=== PATIENT | male | born 1990 | race African-American/Black ===

== ENCOUNTER 2023-09-11 16:17 | Inpatient (IN) | payer OTHER ==
[2023-09-11 18:48] VITALS: BMI 24.6
[2023-09-11] MEDS ORDERED: guaiFENesin 600 MG TABLET.ER (FP) PO PRN (20:13)
[2023-09-11] MEDS ORDERED: MAG HYDROX/AL HYDROX/SIMETH 30 ML UNIT-DOSE CUP PO PRN (20:13)
[2023-09-11] MEDS ORDERED: BISMUTH SUBSALICYLATE 524 MG/30 ML PO PRN (20:13)
[2023-09-11] MEDS ORDERED: IBUPROFEN 600 MG TABLET (FP) PO PRN (20:13)
[2023-09-11] MEDS ORDERED: NALOXONE HCL (KLOXXADO) 8 MG SPRAY NS PRN (20:13)
[2023-09-11] MEDS ORDERED: ACETAMINOPHEN 325 MG TABLET (FP) PO PRN (20:13)
[2023-09-11] MEDS ORDERED: BENZONATATE 200 MG CAPSULE PO PRN (20:13)
[2023-09-11] MEDS ORDERED: LOPERAMIDE HCL 2 MG CAPSULE PO PRN (20:13)
[2023-09-11] MEDS ORDERED: ONDANSETRON *ODT* 4 MG TABLET SL PRN (20:13)
[2023-09-11] MEDS ORDERED: chlordiazePOXIDE HCL 25 MG CAPSULE PO PRN (20:13)
[2023-09-11] MEDS ORDERED: IBUPROFEN 400 MG TABLET (FP) PO PRN (20:13)
[2023-09-11] MEDS ORDERED: DICYCLOMINE HCL 10 MG CAPSULE PO PRN (20:13)
[2023-09-11] MEDS ORDERED: BENZOCAINE/MENTHOL (CHLORASEPTIC ) LOZENGE MM PRN (20:13)
[2023-09-11] MEDS ORDERED: NALOXONE HCL 0.4 MG/ML VIAL IM PRN (20:13)
[2023-09-11] MEDS ORDERED: POLYETHYLENE GLYCOL (HEALTHYLAX) 3350 17 GM PACKET PO PRN (20:13)
[2023-09-11] MEDS: chlordiazePOXIDE HCL 25 MG CAPSULE PO ONE (21:00)
[2023-09-11] MEDS: METOPROLOL TARTRATE 25 MG TABLET (FP) PO ONE (22:12)
[2023-09-11] MEDS: chlordiazePOXIDE HCL 25 MG CAPSULE PO SCH (22:12)
[2023-09-11] MEDS: METHOCARBAMOL 500 MG TABLET PO PRN (22:12)
[2023-09-11] MEDS: THIAMINE HCL 100 MG TABLET (FP) PO SCH (22:12)
[2023-09-11] MEDS: MELATONIN 5 MG TABLETS PO SCH (22:12)
[2023-09-12] MEDS: PRENATAL VITAMINS W/ FOLIC ACID TABLET (FP) PO SCH (10:10)
[2023-09-12 11:02] LABS: HEMATOCRIT 38.5 % (35.4-49); HEMOGLOBIN 12.2 GM/dL (11.7-16.9); MCH 27.2 pg (25.7-33.7); MCHC 31.8 g/dl (32.0-35.9); MEAN CELL VOLUME 85.6 fl (80-96); MEAN PLT VOLUME 8.2 fl (7.5-11.1); PLATELET COUNT 256 10^3/uL (134-434); RDW 15.2 % (11.9-15.9); WHITE BLOOD COUNT 4.6 K/mm3 (4.0-10.0)
[2023-09-12 11:39] LABS: CHLORIDE 100 mmol/L (98-107); POTASSIUM 3.4 mmol/L (3.5-5.1); SODIUM 136 mmol/L (136-145)
[2023-09-12 11:41] LABS: CALCIUM 9.5 mg/dL (8.5-10.1)
[2023-09-12 11:43] LABS: ALBUMIN 3.9 g/dl (3.4-5.0); ANION GAP 6 mmol/L (4-13); BLOOD UREA NITROGEN 10.6 mg/dL (7-18); CO2 30 mmol/L (21-32); GLUCOSE,RANDOM 89 mg/dL (74-106)
[2023-09-12 11:46] LABS: BILIRUBIN,TOTAL 1.4 mg/dL (0.2-1); CREATININE 0.9 mg/dL (0.55-1.3); SGOT/AST 55 U/L (15-37); SGPT/ALT 45 U/L (13-61); TOT PROT 7.4 g/dl (6.4-8.2)
[2023-09-12 11:48] LABS: ALK PHOS 79 U/L (45-117)
[2023-09-12 15:08] LABS: EPI CELLS 9 /uL (0-25.1); HYALINE CASTS 3 /uL (0-3.1); PH,URINE 6.5 (5.0-8.0); URINE APPEARANCE CLEAR; URINE BACTERIA 8 /uL (0-1359); URINE BILIRUBIN 1+ (NEGATIVE); URINE COLOR DK YELLOW; URINE GLUCOSE (UA) NEGATIVE (NEGATIVE); URINE KETONE TRACE (NEGATIVE); URINE LEUK ESTERASE NEGATIVE (NEGATIVE); URINE NITRITE NEGATIVE (NEGATIVE); URINE PROTEIN 1+ (NEGATIVE); URINE RBC 8 /uL (0-23.9); URINE WBC 8 /uL (0-25.8)
[2023-09-12] MEDS: POTASSIUM CHLORIDE ORAL LIQUID 20 MEQ/15 ML PO ONE (15:53)
[2023-09-12] MEDS: MAGNESIUM HYDROX 2400MG/30ML ORAL SUSPENSION 30 ML CUP PO PRN (19:04)
[2023-09-12] MEDS: LIDOCAINE PATCH REMOVAL MC SCH (22:09)
[2023-09-13] MEDS: chlordiazePOXIDE HCL 25 MG CAPSULE PO SCH (05:17)
[2023-09-13] MEDS: LIDOCAINE 4% PATCH TP SCH (10:02)
[2023-09-14] MEDS ORDERED: chlordiazePOXIDE HCL 10 MG CAPSULE PO PRN
[2023-09-14] MEDS: chlordiazePOXIDE HCL 10 MG CAPSULE PO SCH (05:32)
[2023-09-15] MEDS: chlordiazePOXIDE HCL 10 MG CAPSULE PO SCH (05:55)
[2023-09-16] MEDS: chlordiazePOXIDE HCL 10 MG CAPSULE PO ONE (05:41)
[2023-09-16 08:45] VITALS: BP 110/69; PULSE 69; RESP 16; TEMP 97.7
== END 2023-09-16 12:24 | disposition other institution (70) | DRG 775 ==
LOC: YASAS 16:17 → Y3N 21:22
PROVIDERS: ADMIT Allergy & Immunology; ATTEND Surgery
PROC: HZ2ZZZZ Detoxification Services for Substance Abuse Treatment (ICD-10-PCS; principal; 2023-09-11)
DX: F10.230 Alcohol dependence with withdrawal, uncomplicated (principal); F19.24 Other psychoactive substance dependence with psychoactive substance-induced mood disorder; F41.9 Anxiety disorder, unspecified; E87.5 Hyperkalemia; G47.00 Insomnia, unspecified; M54.50 Low back pain, unspecified; G89.29 Other chronic pain
CPT/HCPCS: 36415; 80053; 80307; 81003; 85027; 86780; 87635; 93005; 93010

== ENCOUNTER 2023-09-16 12:30 | Inpatient (IN) | payer OTHER ==
[2023-09-16] MEDS ORDERED: guaiFENesin 600 MG TABLET.ER (FP) PO PRN (14:13)
[2023-09-16] MEDS ORDERED: ACETAMINOPHEN 325 MG TABLET (FP) PO PRN (14:13)
[2023-09-16] MEDS ORDERED: DOCUSATE SODIUM 100 MG CAPSULE (FP) PO PRN (14:13)
[2023-09-16] MEDS ORDERED: AMMONIUM LACTATE 12% LOTION 225 GM BOTTLE TP PRN (14:13)
[2023-09-16] MEDS ORDERED: NALOXONE HCL (KLOXXADO) 8 MG SPRAY NS PRN (14:13)
[2023-09-16] MEDS ORDERED: COLLOIDAL OATMEAL 1 BAR EACH TP PRN (14:13)
[2023-09-16] MEDS ORDERED: MAGNESIUM HYDROX 2400MG/30ML ORAL SUSPENSION 30 ML CUP PO PRN (14:13)
[2023-09-16] MEDS ORDERED: NALOXONE HCL 0.4 MG/ML VIAL IVPUSH PRN (14:13)
[2023-09-16] MEDS ORDERED: BENZONATATE 200 MG CAPSULE PO PRN (14:13)
[2023-09-16] MEDS ORDERED: LOPERAMIDE HCL 2 MG CAPSULE PO PRN (14:13)
[2023-09-16] MEDS ORDERED: POLYETHYLENE GLYCOL (HEALTHYLAX) 3350 17 GM PACKET PO PRN (14:13)
[2023-09-16] MEDS ORDERED: IBUPROFEN 400 MG TABLET (FP) PO PRN (14:13)
[2023-09-16] MEDS ORDERED: MAG HYDROX/AL HYDROX/SIMETH 30 ML UNIT-DOSE CUP PO PRN (14:13)
[2023-09-16] MEDS ORDERED: BENZOCAINE/MENTHOL (CHLORASEPTIC ) LOZENGE MM PRN (14:13)
[2023-09-16] MEDS: MELATONIN 5 MG TABLETS PO SCH (21:15)
[2023-09-16] MEDS: hydrOXYzine PAMOATE 25 MG CAPSULE (FP) PO PRN (21:15)
[2023-09-16] MEDS: THIAMINE HCL 100 MG TABLET (FP) PO SCH (21:15)
[2023-09-16] MEDS: METHOCARBAMOL 500 MG TABLET PO PRN (21:27)
[2023-09-17] MEDS: PRENATAL VITAMINS W/ FOLIC ACID TABLET (FP) PO SCH (09:55)
[2023-09-17] MEDS: hydrOXYzine PAMOATE 25 MG CAPSULE (FP) PO PRN ×2 (09:56→21:38)
[2023-09-17] MEDS: METHOCARBAMOL 500 MG TABLET PO PRN ×2 (09:58→21:38)
[2023-09-17 12:39] LABS: HIV INTERPRETATION NEGATIVE (NEGATIVE)
[2023-09-17] MEDS: LIDOCAINE 5% TOPICAL PATCH TP SCH (12:42)
[2023-09-17] MEDS: LIDOCAINE PATCH REMOVAL MC SCH (21:38)
[2023-09-17] MEDS: MELATONIN 5 MG TABLETS PO SCH (21:38)
[2023-09-17] MEDS: THIAMINE HCL 100 MG TABLET (FP) PO SCH (21:38)
[2023-09-18] MEDS: PRENATAL VITAMINS W/ FOLIC ACID TABLET (FP) PO SCH (09:54)
[2023-09-18] MEDS: LIDOCAINE 5% TOPICAL PATCH TP SCH (09:54)
[2023-09-18] MEDS: MELATONIN 5 MG TABLETS PO SCH (21:23)
[2023-09-18] MEDS: THIAMINE HCL 100 MG TABLET (FP) PO SCH (21:23)
[2023-09-18] MEDS: METHOCARBAMOL 500 MG TABLET PO PRN (21:24)
[2023-09-18] MEDS: LIDOCAINE PATCH REMOVAL MC SCH (21:24)
[2023-09-19] MEDS: IBUPROFEN 600 MG TABLET (FP) PO PRN (06:28)
[2023-09-19] MEDS: METHOCARBAMOL 500 MG TABLET PO PRN ×2 (06:28→21:16)
[2023-09-19] MEDS: hydrOXYzine PAMOATE 25 MG CAPSULE (FP) PO PRN ×2 (06:30→21:16)
[2023-09-19] MEDS: PRENATAL VITAMINS W/ FOLIC ACID TABLET (FP) PO SCH (09:55)
[2023-09-19] MEDS: LIDOCAINE 5% TOPICAL PATCH TP SCH (09:56)
[2023-09-19] MEDS: THIAMINE HCL 100 MG TABLET (FP) PO SCH (21:16)
[2023-09-19] MEDS: MELATONIN 5 MG TABLETS PO SCH (21:16)
[2023-09-19] MEDS: LIDOCAINE PATCH REMOVAL MC SCH (21:17)
[2023-09-20] MEDS: hydrOXYzine PAMOATE 25 MG CAPSULE (FP) PO PRN ×2 (09:50→21:09)
[2023-09-20] MEDS: LIDOCAINE 5% TOPICAL PATCH TP SCH (09:50)
[2023-09-20] MEDS: PRENATAL VITAMINS W/ FOLIC ACID TABLET (FP) PO SCH (09:50)
[2023-09-20] MEDS: THIAMINE HCL 100 MG TABLET (FP) PO SCH (21:09)
[2023-09-20] MEDS: MELATONIN 5 MG TABLETS PO SCH (21:09)
[2023-09-20] MEDS: METHOCARBAMOL 500 MG TABLET PO PRN (21:10)
[2023-09-20] MEDS: LIDOCAINE PATCH REMOVAL MC SCH (21:11)
[2023-09-21] MEDS: LIDOCAINE 5% TOPICAL PATCH TP SCH (09:57)
[2023-09-21] MEDS: PRENATAL VITAMINS W/ FOLIC ACID TABLET (FP) PO SCH (09:58)
[2023-09-21] MEDS: hydrOXYzine PAMOATE 25 MG CAPSULE (FP) PO PRN ×2 (09:58→21:21)
[2023-09-21] MEDS: MELATONIN 5 MG TABLETS PO SCH (21:21)
[2023-09-21] MEDS: THIAMINE HCL 100 MG TABLET (FP) PO SCH (21:21)
[2023-09-21] MEDS: LIDOCAINE PATCH REMOVAL MC SCH (21:21)
[2023-09-21] MEDS: METHOCARBAMOL 500 MG TABLET PO PRN (21:21)
[2023-09-22] MEDS: METHOCARBAMOL 500 MG TABLET PO PRN (07:56)
[2023-09-22] MEDS: IBUPROFEN 600 MG TABLET (FP) PO PRN ×2 (07:56→21:23)
[2023-09-22] MEDS: LIDOCAINE 5% TOPICAL PATCH TP SCH (10:08)
[2023-09-22] MEDS: PRENATAL VITAMINS W/ FOLIC ACID TABLET (FP) PO SCH (10:08)
[2023-09-22] MEDS: hydrOXYzine PAMOATE 25 MG CAPSULE (FP) PO PRN ×2 (10:08→21:22)
[2023-09-22] MEDS: THIAMINE HCL 100 MG TABLET (FP) PO SCH (21:22)
[2023-09-22] MEDS: MELATONIN 5 MG TABLETS PO SCH (21:22)
[2023-09-22] MEDS: LIDOCAINE PATCH REMOVAL MC SCH (21:22)
[2023-09-23] MEDS: IBUPROFEN 600 MG TABLET (FP) PO PRN (05:53)
[2023-09-23] MEDS: hydrOXYzine PAMOATE 25 MG CAPSULE (FP) PO PRN ×2 (08:59→21:16)
[2023-09-23] MEDS: PRENATAL VITAMINS W/ FOLIC ACID TABLET (FP) PO SCH (09:50)
[2023-09-23] MEDS: LIDOCAINE 5% TOPICAL PATCH TP SCH (09:50)
[2023-09-23] MEDS: THIAMINE HCL 100 MG TABLET (FP) PO SCH (21:16)
[2023-09-23] MEDS: MELATONIN 5 MG TABLETS PO SCH (21:16)
[2023-09-23] MEDS: METHOCARBAMOL 500 MG TABLET PO PRN (21:16)
[2023-09-23] MEDS: LIDOCAINE PATCH REMOVAL MC SCH (21:17)
[2023-09-24] MEDS: hydrOXYzine PAMOATE 25 MG CAPSULE (FP) PO PRN ×2 (07:43→21:07)
[2023-09-24] MEDS: PRENATAL VITAMINS W/ FOLIC ACID TABLET (FP) PO SCH (09:43)
[2023-09-24] MEDS: LIDOCAINE 5% TOPICAL PATCH TP SCH (09:43)
[2023-09-24] MEDS: MELATONIN 5 MG TABLETS PO SCH (21:07)
[2023-09-24] MEDS: THIAMINE HCL 100 MG TABLET (FP) PO SCH (21:07)
[2023-09-24] MEDS: METHOCARBAMOL 500 MG TABLET PO PRN (21:10)
[2023-09-24] MEDS: LIDOCAINE PATCH REMOVAL MC SCH (21:32)
[2023-09-25] MEDS: hydrOXYzine PAMOATE 25 MG CAPSULE (FP) PO PRN ×2 (08:54→21:15)
[2023-09-25] MEDS: LIDOCAINE 5% TOPICAL PATCH TP SCH (09:47)
[2023-09-25] MEDS: PRENATAL VITAMINS W/ FOLIC ACID TABLET (FP) PO SCH (09:47)
[2023-09-25] MEDS: MELATONIN 5 MG TABLETS PO SCH (21:14)
[2023-09-25] MEDS: THIAMINE HCL 100 MG TABLET (FP) PO SCH (21:14)
[2023-09-25] MEDS: LIDOCAINE PATCH REMOVAL MC SCH (21:14)
[2023-09-25] MEDS: METHOCARBAMOL 500 MG TABLET PO PRN (21:14)
[2023-09-26] MEDS: hydrOXYzine PAMOATE 25 MG CAPSULE (FP) PO PRN ×2 (08:59→21:10)
[2023-09-26] MEDS: LIDOCAINE 5% TOPICAL PATCH TP SCH (09:37)
[2023-09-26] MEDS: PRENATAL VITAMINS W/ FOLIC ACID TABLET (FP) PO SCH (09:37)
[2023-09-26] MEDS: LIDOCAINE PATCH REMOVAL MC SCH (21:05)
[2023-09-26] MEDS: MELATONIN 5 MG TABLETS PO SCH (21:05)
[2023-09-26] MEDS: THIAMINE HCL 100 MG TABLET (FP) PO SCH (21:06)
[2023-09-26] MEDS: METHOCARBAMOL 500 MG TABLET PO PRN (21:10)
[2023-09-27] MEDS: hydrOXYzine PAMOATE 25 MG CAPSULE (FP) PO PRN ×2 (08:51→21:14)
[2023-09-27] MEDS: LIDOCAINE 5% TOPICAL PATCH TP SCH (09:41)
[2023-09-27] MEDS: PRENATAL VITAMINS W/ FOLIC ACID TABLET (FP) PO SCH (09:42)
[2023-09-27] MEDS: THIAMINE HCL 100 MG TABLET (FP) PO SCH (21:13)
[2023-09-27] MEDS: METHOCARBAMOL 500 MG TABLET PO PRN (21:15)
[2023-09-27] MEDS: MELATONIN 5 MG TABLETS PO SCH (21:16)
[2023-09-27] MEDS: LIDOCAINE PATCH REMOVAL MC SCH (21:16)
[2023-09-28] MEDS: hydrOXYzine PAMOATE 25 MG CAPSULE (FP) PO PRN ×2 (08:38→21:10)
[2023-09-28] MEDS: PRENATAL VITAMINS W/ FOLIC ACID TABLET (FP) PO SCH (09:41)
[2023-09-28] MEDS: LIDOCAINE 5% TOPICAL PATCH TP SCH (09:41)
[2023-09-28] MEDS: METHOCARBAMOL 500 MG TABLET PO PRN (21:10)
[2023-09-28] MEDS: MELATONIN 5 MG TABLETS PO SCH (21:11)
[2023-09-28] MEDS: THIAMINE HCL 100 MG TABLET (FP) PO SCH (21:11)
[2023-09-28] MEDS: LIDOCAINE PATCH REMOVAL MC SCH (21:12)
[2023-09-29] MEDS: PRENATAL VITAMINS W/ FOLIC ACID TABLET (FP) PO SCH (09:34)
[2023-09-29] MEDS: LIDOCAINE 5% TOPICAL PATCH TP SCH (09:34)
[2023-09-29] MEDS: hydrOXYzine PAMOATE 25 MG CAPSULE (FP) PO PRN ×2 (09:35→21:08)
[2023-09-29] MEDS: LIDOCAINE PATCH REMOVAL MC SCH (21:07)
[2023-09-29] MEDS: THIAMINE HCL 100 MG TABLET (FP) PO SCH (21:08)
[2023-09-29] MEDS: MELATONIN 5 MG TABLETS PO SCH (21:08)
[2023-09-29] MEDS: METHOCARBAMOL 500 MG TABLET PO PRN (21:08)
[2023-09-30] MEDS: LIDOCAINE 5% TOPICAL PATCH TP SCH (09:27)
[2023-09-30] MEDS: PRENATAL VITAMINS W/ FOLIC ACID TABLET (FP) PO SCH (09:27)
[2023-09-30] MEDS: hydrOXYzine PAMOATE 25 MG CAPSULE (FP) PO PRN ×2 (09:27→21:27)
[2023-09-30] MEDS: METHOCARBAMOL 500 MG TABLET PO PRN (21:27)
[2023-09-30] MEDS: MELATONIN 5 MG TABLETS PO SCH (21:27)
[2023-09-30] MEDS: THIAMINE HCL 100 MG TABLET (FP) PO SCH (21:27)
[2023-09-30] MEDS: LIDOCAINE PATCH REMOVAL MC SCH (21:28)
[2023-10-01 07:06] VITALS: RESP 18
[2023-10-01] MEDS: hydrOXYzine PAMOATE 25 MG CAPSULE (FP) PO PRN ×2 (08:57→21:10)
[2023-10-01] MEDS: LIDOCAINE 5% TOPICAL PATCH TP SCH (09:42)
[2023-10-01] MEDS: PRENATAL VITAMINS W/ FOLIC ACID TABLET (FP) PO SCH (09:42)
[2023-10-01] MEDS: MELATONIN 5 MG TABLETS PO SCH (21:10)
[2023-10-01] MEDS: THIAMINE HCL 100 MG TABLET (FP) PO SCH (21:10)
[2023-10-01] MEDS: METHOCARBAMOL 500 MG TABLET PO PRN (21:12)
[2023-10-01] MEDS: LIDOCAINE PATCH REMOVAL MC SCH (21:34)
[2023-10-02] MEDS: hydrOXYzine PAMOATE 25 MG CAPSULE (FP) PO PRN (08:49)
[2023-10-02] MEDS: LIDOCAINE 5% TOPICAL PATCH TP SCH (09:47)
[2023-10-02] MEDS: PRENATAL VITAMINS W/ FOLIC ACID TABLET (FP) PO SCH (09:48)
[2023-10-02] MEDS: THIAMINE HCL 100 MG TABLET (FP) PO SCH (21:01)
[2023-10-02] MEDS: IBUPROFEN 600 MG TABLET (FP) PO PRN (21:01)
[2023-10-02] MEDS: MELATONIN 5 MG TABLETS PO SCH (21:01)
[2023-10-02] MEDS: LIDOCAINE PATCH REMOVAL MC SCH (23:38)
[2023-10-03] MEDS: PRENATAL VITAMINS W/ FOLIC ACID TABLET (FP) PO SCH (09:51)
[2023-10-03] MEDS: hydrOXYzine PAMOATE 25 MG CAPSULE (FP) PO PRN ×2 (09:52→21:18)
[2023-10-03] MEDS: LIDOCAINE 5% TOPICAL PATCH TP SCH (09:53)
[2023-10-03] MEDS: MELATONIN 5 MG TABLETS PO SCH (21:17)
[2023-10-03] MEDS: THIAMINE HCL 100 MG TABLET (FP) PO SCH (21:17)
[2023-10-03] MEDS: IBUPROFEN 600 MG TABLET (FP) PO PRN (21:17)
[2023-10-03] MEDS: LIDOCAINE PATCH REMOVAL MC SCH (21:48)
[2023-10-04 07:12] VITALS: BP 124/78; PULSE 78; TEMP 97.4
[2023-10-04] MEDS: PRENATAL VITAMINS W/ FOLIC ACID TABLET (FP) PO SCH (09:45)
[2023-10-04] MEDS: LIDOCAINE 5% TOPICAL PATCH TP SCH (09:45)
[2023-10-04] MEDS: hydrOXYzine PAMOATE 25 MG CAPSULE (FP) PO PRN (09:46)
== END 2023-10-04 10:22 | disposition home or self-care (01) | DRG 772 ==
LOC: YASAS 12:30 → Y5N 12:32
PROVIDERS: ADMIT Allergy & Immunology; ATTEND Psychiatry & Neurology Pain Medicine
PROC: HZ42ZZZ Group Counseling for Substance Abuse Treatment, Cognitive-Behavioral (ICD-10-PCS; principal; 2023-09-16)
DX: F10.20 Alcohol dependence, uncomplicated (principal); F19.24 Other psychoactive substance dependence with psychoactive substance-induced mood disorder; F41.9 Anxiety disorder, unspecified; G47.00 Insomnia, unspecified; M62.830 Muscle spasm of back; M54.50 Low back pain, unspecified; G89.29 Other chronic pain
CPT/HCPCS: 36415; 87389